=== PATIENT | female | born 1945 | race African-American/Black ===

== ENCOUNTER 2017-10-19 18:33 | Inpatient (IN) | payer OTHER ==
[~2017-10-19] VITALS: Ht 170.2 cm; Wt 120.2 kg
--- NOTE | ~2017-10-19 | CATHLAB ---
[facility] [address] [place] [address] INVASIVE PROCEDURE REPORT Name: DEDRA SUAREZ Room #: 219-P ADM IN M.R.#: [id number] Admission: 10/19/17 Attend Phys: Joey Crawford MD Discharge: Date of : 47 Date of Service: 10/23/171814 Report #: [id number] THIS REPORT FOR: //name// APPROVED REPORT Patient Details Patient Status: In-Patient Room #: The patient is a 72 year-old female Event Personnel Abraham Robertson Dairy Farm Operator, Cecilio Becker RN, Jer Juárez, Shirley Calderon Monitor Procedures Performed Art Access - R femoral artery* Noe Access - R femoral vein [id number] Initial Mod Sed Same Phys/QHP Gr5y [id number] Right and Left Heart Cath w/or w/o Coronarie [id number] RLHC Renal Bilateral Peripheral Angiography [id number] CVRENALBIL Hemostasis w/ Mynx Procedure Narrative The patient was brought urgently to the Cardiac Catheterization Laboratory and was prepped and draped in a sterile manner. The Right Groin^ was infiltrated with 1% Lidocaine subcutaneous anesthesia. A PINNACLE 6FR Sheath #[id number] sheath was inserted into the RFA^. Coronary angiography was performed using coronary diagnostic catheters. The right coronary system was accessed and visualized with a JR 4 catheter. The left coronary system was accessed and visualized with a JL 4 catheter. The left ventricle was accessed and visualized with a Pigtail catheter. Left ventriculogram was performed in JOE projection. An aortogram of the abdominal aorta was performed. Pre-demployment femoral angiogram was performed . Closure device was deployed with a 6 Fr Mynx. Hemostasis was obtained with manual pressure following sheath removal without any complications. The patient tolerated the procedure well and there were no complications associated with the procedure. There was no hematoma. Intraoperative Conscious Sedation Sedation start time: 07:38 Case end Time: 07:57 Fentanyl 25 mcg Versed 1.5 mg Fluoro Time: 4.15 minutes Dose: DAP 6956.30 cGycm2 629 mGy Contrast Type and Amount: Visipaque [address] [address] INVASIVE PROCEDURE REPORT Name: DEDRA SUAREZ Room #: 219-P [facility] IN M.R.#: [id number] Admission: 10/19/17 Attend Phys: Joey Crawford MD Discharge: Date of : 47 Date of Service: 10/23/17 1815 Report #: [id number] Hemodynamics The right atrial mean pressure is 24 mmHg. The right ventricular pressure is 86/19 mmHg. The pulmonary artery pressure is 82/38 mmHg with a mean of 55 mmHg. The mean pulmonary capillary wedge pressure is 35 mmHg. The aortic pressure is 140/65 mmHg with a mean of 96 mmHg. The left ventricular pressure is 116/32 mmHg with a mean of mmHg. The left ventricular end diastolic pressure is 61 mmHg. The cardiac output using thermo method is 3.95 L/min. The cardiac index using thermo method is 1.72 L/min/m2. Conclusion #1 successful right heart catheterization with [place]-Idalmis catheter. Cardiac output by thermodilution. Marketed elevation pulmonary E wedge and PA pressures see above hemodynamics #2 moderately severe left ventricular dilatation with severe global hypokinesis EF 20% range #3 essentially normal coronary anatomy in a right dominant system. No significant occlusive disease is noted. #4 selective injection of bilateral renal arteries with mild ostial disease noted Recommendations and plan or continue aggressive risk factor modification needs aggressive diuresis. 80 mg of Lasix and Lasix drip initiated in the catheterization lab. Etiology of this cardiomyopathy is nonischemic. Fluid sodium restriction and aggressive monitoring and diuresis in the CCU. <ELECTRONICALLY SIGNED> By: Abraham Robertson MD, FACC 10/23/171814 14 14 Abraham Robertson MD, FACC /INF
--- NOTE | ~2017-10-19 | EKG ---
[place] [address] [facility] [place] [address] ELECTROCARDIOGRAM REPORT Name: DEDRA SUAREZ Room #: 219-P ADM IN M.R.#: [id number] Admission: 10/19/17 Attend Phys: Joey Crawford MD Discharge: Date of : 47 Report #: [id number] THIS REPORT FOR: //name// [facility] Test Date: 2017-10-20 Test Time: 06:49:36 Pat Name: DEDRA SUAREZ Department: Room: 219 P Gender: F Code Enforcement Supervisor: ELISABETH : 1945 Requested By: Erika Small Order Number: [id number] MD: Zaheer Nguyen Measurements Intervals [place] Rate: 58 P: -2 [place]: 173 QRS: -23 QRSD: 111 T: 122 QT: 501 QTc: 493 Interpretive Statements Sinus rhythm Ventricular premature complex Incomplete left bundle branch block Probable left ventricular hypertrophy Baseline wander in lead(s) V6 Compared to ECG 12/24/2001 13:15:20 Ventricular premature complex(es) now present Left bundle-branch block now present Electronically Signed On 10-20-2017 8:12:35 SEWER BRICKLAYER by Zaheer Nguyen [email or web address] <ELECTRONICALLY SIGNED> By: Zaheer Nguyen MD 10/20/17 0812 [id number] Zaheer Nguyen MD /EPI
--- NOTE | ~2017-10-19 | 2DMMODE ---
[facility] [address] [place] [address] 2 D/M-MODE ECHOCARDIOGRAM Name: DEDRA SUAREZ Room #: 219-P ADM IN M.R.#: [id number] Admission: 10/19/17 Attend Phys: Joey Crawford MD Discharge: Date of : 47 Date of Service: 10/20/17 1205 Report #: [id number] THIS REPORT FOR: //name// APPROVED REPORT Study performed: 10/20/2017 09:45:06 EXAM: Comprehensive 2D, Doppler, and color-flow Echocardiogram Patient Location: Bedside Room #: 219 Status: routine BSA: 2.30 HR: 60 bpm BP: 147/89 mmHg Rhythm: PVC's Other Information Study Quality: Adequate Indications CHF, edema. Hx: DM, CHF, HTN, Afib, morbid obesity 2D Dimensions RVDd: 45.77 mm LVEF(%): 18.40 (>50%) IVSd: 11.00 (7-11mm) LVOT Diam: 20.14 (18-24mm) LVDd: 72.29 mm PWd: 10.65 (7-11mm) Ascending Ao: 39.15 (22-36mm) LVDs: 66.06 (25-40mm) Aortic Root: 32.57 mm Desouza's LVEF: 18.40 % Volumes Left Atrial Volume (Systole) Single Plane 4CH: 115.81 mL Single Plane 2CH: 103.78 mL LA ESV Index: 52.00 mL/m2 Aortic Valve AoV Peak Stewart.: 1.36 m/s AO Peak Gr.: 7.36 mmHg LVOT Max P.93 mmHg LVOT Max V: 0.99 m/s MARLIN Vmax: 2.33 cm2 Mitral Valve E/A Ratio: 2.5 MV Decel. Time: 124.67 ms [facility] [place] [address] 2 D/M-MODE ECHOCARDIOGRAM Name: DEDRA SUAREZ Room #: 219-P [facility] IN M.R.#: [id number] Admission: 10/19/17 Attend Phys: Joey Crawford MD Discharge: Date of : 47 Date of Service: 10/20/17 1205 Report #: [id number] MV E Max Stewart.: 1.15 m/s MV A Stewart.: 0.46 m/s MV PHT: 36.15 ms IVRT: 69.20 ms Pulmonary Valve PV Peak Stewart.: 1.14 m/s PV Peak Gr.: 5.17 mmHg Pulmonary Vein P Vein S: 0.46 m/s P Vein A: 0.25 m/s P Vein D: 0.47 m/s P Vein A Dur.: 87.7 msec P Vein S/D Ratio: 0.98 Tricuspid Valve TR Peak Stewart.: 3.52 m/s RAP Estimate: 10.00 mmHg TR Peak Gr.: 49.49 mmHg PA Pressure: 59.00 mmHg Left Ventricle Left ventricle is moderate to severely dilated. There is normal left ventricular wall thickness. Left ventricular systolic function is severely decreased. LVEF 20%. Severe diastolic dysfunction is present (restrictive filling). Right Ventricle Right ventricle is mild to moderately dilated. Right ventricle is moderately hypokinetic. Atria Left atrium is severely dilated. Right atrium is moderately dilated. Aortic Valve Aortic valve leaflets are mildly thickened and calcified, trileaflet. Trace aortic regurgitation. There is no aortic valvular stenosis. Mitral Valve Moderate mitral annular calcification. Mild mitral regurgitation. Tricuspid Valve The tricuspid valve is normal in structure. Moderate tricuspid regurgitation. Estimated PAP is 60mmHg. Pulmonic Valve [address] [address] 2 D/M-MODE ECHOCARDIOGRAM Name: DEDRA SUAREZ Room #: 219-P [facility] IN M.R.#: [id number] Admission: 10/19/17 Attend Phys: Joey Crawford MD Discharge: Date of : 47 Date of Service: 10/20/17 1205 Report #: [id number] The pulmonary valve is normal in structure. Mild pulmonic regurgitation. Great Vessels The aortic root is normal in size. The ascending aorta is mildly dilated at 3.9cm. IVC is dilated and collapses <50% with inspiration. Pericardium There is no pericardial effusion. <Conclusion> Left ventricular systolic function is severely decreased. LVEF 20%. Severe diastolic dysfunction is present (restrictive filling). Both atria are severely dilated. Aortic valve leaflets are mildly thickened and calcified, trileaflet. No aortic valvular stenosis, trace insufficiency. Moderate mitral annular calcification. Mild mitral regurgitation. Moderate tricuspid regurgitation. Estimated pulmonary artery pressure of 60mmHg. There is no pericardial effusion. <ELECTRONICALLY SIGNED> By: Neftali Lacy MD, [facility] 10/20/171204 04 04 Neftali Lacy MD, FACC /INF
--- NOTE | ~2017-10-19 | EKG ---
[place] [address] [facility] [facility] [place] [address] ELECTROCARDIOGRAM REPORT Name: DEDRA SUAREZ Room #: 219-P ADM IN M.R.#: [id number] Admission: 10/19/17 Attend Phys: Joey Crawford MD Discharge: Date of : 47 Report #: [id number] THIS REPORT FOR: //name// [facility] ED Test Date: 2017-10-19 Test Time: 19:01:07 Pat Name: DEDRA SUAREZ Department: Room: 219 Gender: F Consulting Systems Engineer: ARNOLD : 1945 Requested By: Merlene Cazares Order Number: [id number] MD: Neftali Lacy Measurements Intervals [place] Rate: 64 P: 10 [place]: 166 QRS: -29 QRSD: 111 T: 147 QT: 505 QTc: 521 Interpretive Statements Sinus rhythm Poor R wave progression Nonspecific intraventricular conduction delay Prolonged QT interval Compared to ECG 12/24/2001 13:15:20 IVCD now present Prolonged QT interval has lengthened Electronically Signed On 10-21-2017 8:47:01 PLANNING ANALYST by Neftali Lacy [email or web address] <ELECTRONICALLY SIGNED> By: Neftali Lacy MD, [facility] 10/21/17 0847 [id number] Neftali Lacy MD, [facility] /EPI
[2017-10-19 18:51] VITALS: BP 137/74
[2017-10-19 19:25] LABS: ABSOLUTE NEUTROPHILS 3.8 thou/uL (1.4-8.2); BASOPHILS 0.7 % (0.0-2.0); EOSINOPHILS 2.4 % (0.0-3.0); HEMATOCRIT 30.9 % (37.0-47.0); HEMOGLOBIN 9.6 gm/dL (12.0-15.0); LYMPHOCYTES 14.3 % (24.0-44.0); MCH 23.4 pg (26.0-34.0); MCHC 31.1 g/dL (28.0-37.0); MCV 75.4 fL (80.0-100.0); MONOCYTES 6.2 % (1.0-8.0); PLATELET COUNT 187 thou/uL (150-400); POLYS 76.4 % (36.0-66.0); RDW 21.3 % (10.5-14.5)
[2017-10-19 19:31] LABS: ANION GAP 11 mmol/L (7-16); BUN 44 mg/dL (7-18); CALCIUM 8.6 mg/dL (8.5-10.1); CHLORIDE 104 mmol/L (98-107); CO2 25 mmol/L (21-32); CREATININE 2.1 mg/dL (0.6-1.0); GLUCOSE 311 mg/dL (74-106); POTASSIUM 3.9 mmol/L (3.5-5.1); SODIUM 140 mmol/L (136-145)
[2017-10-19 19:39] LABS: TROPONIN-I < 0.04 ng/mL (<0.06)
[2017-10-19 20:33] VITALS: BP 137/74
[2017-10-19 20:44] VITALS: BP 131/74
[2017-10-19 21:14] VITALS: BP 137/69
[2017-10-19 23:46] VITALS: BP 129/74
[2017-10-20 03:13] VITALS: BP 123/78
[2017-10-20 07:26] LABS: URINE BILIRUBIN NEGATIVE (Negative); URINE BLOOD NEGATIVE (Negative); URINE CLARITY CLEAR; URINE COLOR YELLOW; URINE GLUCOSE-RANDOM* NEGATIVE (Negative); URINE KETONES NEGATIVE (Negative); URINE LEUKOCYTES-REFLEX NEGATIVE (Negative); URINE NITRITE-REFLEX NEGATIVE (Negative); URINE PROTEIN (DIPSTICK) NEGATIVE (Negative); URINE SPECIFIC GRAVITY 1.015 (1.005-1.035); URINE UROBILINOGEN 0.2 E.U./dl (0.2-1.0)
[2017-10-20 07:40] VITALS: BP 117/89; BP 147/89
[2017-10-20] MEDS ORDERED: PROAIR RESPICL90 MCG INH (12:40)
[2017-10-20] MEDS ORDERED: BUMETANIDE 1 MG1 M1 PO (12:42)
[2017-10-20] MEDS ORDERED: COLACE100 MG PO (12:43)
[2017-10-20] MEDS ORDERED: LANTUS SUBQ (12:44)
[2017-10-20] MEDS ORDERED: NASA MIST SALIN75 ML NASAL (12:44)
[2017-10-20 12:45] VITALS: BP 142/83
[2017-10-20] MEDS ORDERED: SYMBICORT160 MCG/4. INH (12:45)
[2017-10-20] MEDS ORDERED: COREG6.25 MG PO (12:46)
[2017-10-20] MEDS ORDERED: VISTARIL 25 MG25 M1 PO (12:47)
[2017-10-20] MEDS ORDERED: FLONASE 0.05%50 MCG NASAL (12:47)
[2017-10-20] MEDS ORDERED: COZAAR 50 MG TA50 M2 PO (12:48)
[2017-10-20] MEDS ORDERED: METFORMIN HCL500 MG PO (12:50)
[2017-10-20] MEDS ORDERED: LOSARTAN PO (12:50)
[2017-10-20] MEDS ORDERED: OMEPRAZOLE40 MG PO (12:52)
[2017-10-20] MEDS ORDERED: K-DUR 20 MEQ T20 MEQ PO (12:53)
[2017-10-20] MEDS ORDERED: ALDACTONE25 MG PO (12:53)
[2017-10-20] MEDS ORDERED: EFFEXOR 5050 MG/1 T1 (12:54)
[2017-10-20] MEDS ORDERED: COUMADIN7.5 MG PO (12:54)
[2017-10-20] MEDS ORDERED: CALCIUM 500 +1 EAC5 PO (12:55)
[2017-10-20] MEDS ORDERED: ASPIR 8181 MG PO (12:56)
[2017-10-20] MEDS ORDERED: ARIMIDEX1 MG PO (12:56)
[2017-10-20 13:07] LABS: HEMATOCRIT 30.8 % (37.0-47.0); HEMOGLOBIN 9.5 gm/dL (12.0-15.0); MCH 23.1 pg (26.0-34.0); MCHC 30.8 g/dL (28.0-37.0); MCV 75.2 fL (80.0-100.0); RBC 4.1 mil/uL (4.20-5.00); RDW 21.3 % (10.5-14.5); WBC 5.4 thou/uL (4.0-11.0)
[2017-10-20 13:35] LABS: CALCIUM 8.5 mg/dL (8.5-10.1); CREATININE 1.8 mg/dL (0.6-1.0); POTASSIUM 3.3 mmol/L (3.5-5.1)
[2017-10-20 16:20] VITALS: BP 143/71
[2017-10-20 18:11] LABS: INR 1.5; PROTIME 15.7 Seconds (9.3-11.4)
[2017-10-20 19:05] VITALS: BP 121/63
[2017-10-21] VITALS (7 sets, daily range): BP systolic 111–140; BP diastolic 47–80
[2017-10-21 04:17] LABS: INR 1.5; PROTIME 14.8 Seconds (9.3-11.4)
[2017-10-21 04:18] LABS: CALCIUM 8.3 mg/dL (8.5-10.1); CREATININE 1.6 mg/dL (0.6-1.0); POTASSIUM 3.3 mmol/L (3.5-5.1)
[2017-10-21 04:32] LABS: BASOPHILS 0.8 % (0.0-2.0); EOSINOPHILS 2.5 % (0.0-3.0); HEMATOCRIT 30.2 % (37.0-47.0); HEMOGLOBIN 9.6 gm/dL (12.0-15.0); LYMPHOCYTES 15.7 % (24.0-44.0); MCH 23.5 pg (26.0-34.0); MCHC 31.7 g/dL (28.0-37.0); MCV 74.2 fL (80.0-100.0); MONOCYTES 7.9 % (1.0-8.0); POLYS 73.1 % (36.0-66.0); RBC 4.07 mil/uL (4.20-5.00); RDW 21.2 % (10.5-14.5); WBC 5.4 thou/uL (4.0-11.0)
[2017-10-21 05:34] LABS: HYPOCHROMASIA 1+; LARGE PLATELETS OCCASIONAL; PLATELET COUNT 160 thou/uL (150-400)
[2017-10-21 05:35] LABS: ANISOCYTOSIS 3+; MACROCYTES 1+; MICROCYTES 2+; POLYCHROMASIA OCCASIONAL
[2017-10-21 15:02] LABS: CHOLESTEROL 89 mg/dL (<200); HDL CHOLESTEROL 31 mg/dL (>40); LDL CHOLESTEROL 50 mg/dL (<100); MAGNESIUM 1.6 mg/dL (1.8-2.4); TC:HDL 2.9 Ratio (Not establshd); TRIGLYCERIDE 41 mg/dL (<150); VLDL 8 mg/dL (<40)
[2017-10-21 15:13] LABS: % SATURATION 7 % (20-39); IRON 22 ug/dL (50-170); TIBC 325 ug/dL (250-450)
[2017-10-21 15:15] LABS: TSH 1.689 uIU/mL (0.358-3.740)
[2017-10-22] VITALS (14 sets, daily range): BP systolic 101–141; BP diastolic 53–89
[2017-10-22 04:46] LABS: CALCIUM 8.4 mg/dL (8.5-10.1); CREATININE 1.6 mg/dL (0.6-1.0); POTASSIUM 3.5 mmol/L (3.5-5.1)
[2017-10-22 04:57] LABS: INR 1.4; PROTIME 14.2 Seconds (9.3-11.4)
[2017-10-23] VITALS (7 sets, daily range): BP systolic 94–133; BP diastolic 46–77
[2017-10-23 04:57] LABS: HEMATOCRIT 33.2 % (37.0-47.0); HEMOGLOBIN 10.2 gm/dL (12.0-15.0); MCH 22.6 pg (26.0-34.0); MCHC 30.8 g/dL (28.0-37.0); MCV 73.4 fL (80.0-100.0); RBC 4.52 mil/uL (4.20-5.00); RDW 21.1 % (10.5-14.5)
[2017-10-23 05:08] LABS: INR 1.3; PROTIME 13.3 Seconds (9.3-11.4)
[2017-10-23 05:25] LABS: CALCIUM 8.8 mg/dL (8.5-10.1); CREATININE 1.5 mg/dL (0.6-1.0); MAGNESIUM 1.6 mg/dL (1.8-2.4); POTASSIUM 3.5 mmol/L (3.5-5.1)
[2017-10-24 04:03] VITALS: BP 134/85
[2017-10-24 06:07] LABS: CALCIUM 9.2 mg/dL (8.5-10.1); CREATININE 1.4 mg/dL (0.6-1.0); POTASSIUM 3.6 mmol/L (3.5-5.1)
[2017-10-24 07:07] VITALS: BP 124/60
[2017-10-24 07:07] LABS: MAGNESIUM 1.7 mg/dL (1.8-2.4)
[2017-10-24 10:53] VITALS: BP 105/57
[2017-10-24 13:17] LABS: INR 1.2; PROTIME 12.7 Seconds (9.3-11.4)
[2017-10-24 15:35] VITALS: BP 105/54
[2017-10-24 19:23] VITALS: BP 117/61
[2017-10-25 04:29] VITALS: BP 122/80
[2017-10-25 05:29] LABS: ALBUMIN 2.9 g/dL (3.4-5.0); CALCIUM 9.2 mg/dL (8.5-10.1); CREATININE 1.4 mg/dL (0.6-1.0); PHOSPHORUS 4.3 mg/dL (2.5-4.9); POTASSIUM 3.4 mmol/L (3.5-5.1)
[2017-10-25 05:41] LABS: INR 1.2; PROTIME 12.3 Seconds (9.3-11.4)
[2017-10-25 08:00] VITALS: BP 122/75
[2017-10-25] MEDS ORDERED: ELIQUIS2.5 MG PO (10:31)
[2017-10-25] MEDS ORDERED: DEMADEX20 MG PO (10:33)
[2017-10-25 13:07] VITALS: BP 133/56
[2017-11-02] MEDS ORDERED: POTASSIUM20 PO (13:26)
[2017-11-02] MEDS ORDERED: XARELTO20 MG PO (13:26)
[2017-11-02] MEDS ORDERED: HYDROXYZINE PAM25 M1 PO (13:28)
[2017-11-02] MEDS ORDERED: TRAMADOL HCL50 MG PO (13:29)
== END 2017-10-25 13:37 | disposition home or self-care (01) | DRG 286 ==
LOC: ER 18:33 → 2N 20:22 → EROBS 20:22 → EDBD 20:22 → 2N 22:24
PROVIDERS: Emergency Medicine; Hospitalist; Internal Medicine Cardiovascular Disease; Nurse Practitioner Adult Health; Nurse Practitioner Family; Nurse Practitioner Gerontology; Registered Nurse
DX: I13.0 Hypertensive heart and chronic kidney disease with heart failure and stage 1 through stage 4 chronic kidney disease, or unspecified chronic kidney disease (principal); N17.0 Acute kidney failure with tubular necrosis; J18.9 Pneumonia, unspecified organism; I50.23 Acute on chronic systolic (congestive) heart failure; I42.8 Other cardiomyopathies; E11.22 Type 2 diabetes mellitus with diabetic chronic kidney disease; G47.33 Obstructive sleep apnea (adult) (pediatric); N18.3 Chronic kidney disease, stage 3 (moderate); I48.0 Paroxysmal atrial fibrillation; E78.5 Hyperlipidemia, unspecified; Z79.82 Long term (current) use of aspirin; E87.6 Hypokalemia; Z51.5 Encounter for palliative care; F41.9 Anxiety disorder, unspecified; E87.70 Fluid overload, unspecified; I25.10 Atherosclerotic heart disease of native coronary artery without angina pectoris; Z88.8 Allergy status to other drugs, medicaments and biological substances; Z79.899 Other long term (current) drug therapy; Z82.49 Family history of ischemic heart disease and other diseases of the circulatory system
CPT/HCPCS: 10081

== ENCOUNTER 2017-10-27 01:36 | Emergency (ER) | payer OTHER ==
[~2017-10-27] VITALS: Ht 167.6 cm; Wt 145.2 kg
--- NOTE | ~2017-10-27 | EKG ---
[place] [address] [facility] [place] [address] ELECTROCARDIOGRAM REPORT Name: DEDRA SUAREZ Room #: [facility] Charlee#: [id number] Admission: 10/27/17 Attend Phys: Discharge: 10/27/17 Date of : 47 Report #: [id number] THIS REPORT FOR: //name// [facility] ED Test Date: 2017-10-27 Test Time: 01:48:59 Pat Name: DEDRA SUAREZ Department: Room: Gender: F Weld Lay Out Worker: Chavez COLLIER : 1945 Requested By: Jer Diaz Order Number: [id number] MD: Neftali Lacy Measurements Intervals [place] Rate: 67 P: 14 [place]: 172 QRS: -24 QRSD: 116 T: 108 QT: 494 QTc: 522 Interpretive Statements Sinus rhythm Poor R wave progression Leftward axis Nonspecific ST and T wave abnormality Compared to ECG 10/20/2017 06:49:36 No significant change was found Electronically Signed On 10-27-2017 7:57:18 DIRECTOR APPOINTMENT by Neftali Lacy [email or web address] <ELECTRONICALLY SIGNED> By: Neftali Lacy MD, [facility] 10/27/17 [phone] Neftali Lacy MD, [facility] /EPI
[~2017-10-27 01:36] MED LIST: ALDACTONE25 MG PO; ARIMIDEX1 MG PO; ASPIR 8181 MG PO; BUMETANIDE 1 MG1 M1 PO; CALCIUM 500 +1 EAC5 PO; COLACE100 MG PO; COREG6.25 MG PO; COUMADIN7.5 MG PO; COZAAR 50 MG TA50 M2 PO; DEMADEX20 MG PO; EFFEXOR 5050 MG/1 T1; ELIQUIS2.5 MG PO; FLONASE 0.05%50 MCG NASAL; K-DUR 20 MEQ T20 MEQ PO; LANTUS SUBQ; LOSARTAN PO; METFORMIN HCL500 MG PO; NASA MIST SALIN75 ML NASAL; OMEPRAZOLE40 MG PO; PROAIR RESPICL90 MCG INH; SYMBICORT160 MCG/4. INH; VISTARIL 25 MG25 M1 PO
[2017-10-27] MEDS ORDERED: ZOFRAN ODT4 MG PO (03:23)
[2017-10-27 04:03] VITALS: BP 162/95
[2017-11-02] MEDS ORDERED: XARELTO20 MG PO (13:26)
[2017-11-02] MEDS ORDERED: POTASSIUM20 PO (13:26)
[2017-11-02] MEDS ORDERED: HYDROXYZINE PAM25 M1 PO (13:28)
[2017-11-02] MEDS ORDERED: TRAMADOL HCL50 MG PO (13:29)
== END 2017-10-27 04:04 | disposition home or self-care (01) ==
LOC: ER 01:36
DX: R11.2 Nausea with vomiting, unspecified (principal); I11.0 Hypertensive heart disease with heart failure; I50.9 Heart failure, unspecified; E11.9 Type 2 diabetes mellitus without complications; Z79.4 Long term (current) use of insulin; Z88.8 Allergy status to other drugs, medicaments and biological substances

== ENCOUNTER → 2017-11-02 | Outpatient (CLI) | payer OTHER ==
[~2017-11-02] VITALS: Ht 170.2 cm; Wt 116.1 kg
[~2017-11-02] MED LIST changes: +HYDROXYZINE PAM25 M1 PO; +POTASSIUM20 PO; +TRAMADOL HCL50 MG PO; +XARELTO20 MG PO; +ZOFRAN ODT4 MG PO
[2017-11-02 13:30] VITALS: BP 152/100
== END ==
LOC: SEN 10-28 13:13
DX: I50.9 Heart failure, unspecified (principal); G47.33 Obstructive sleep apnea (adult) (pediatric); E11.9 Type 2 diabetes mellitus without complications

== ENCOUNTER → 2017-11-12 | Outpatient (CLI) | payer OTHER ==
[~2017-11-12] VITALS: Ht 165.1 cm; Wt 112.9 kg
[2017-11-12 10:43] VITALS: BP 150/82
== END ==
LOC: SEN 11-02 14:22
DX: I50.9 Heart failure, unspecified (principal); E87.0 Hyperosmolality and hypernatremia; E11.9 Type 2 diabetes mellitus without complications; I10 Essential (primary) hypertension